=== PATIENT | female | born 1970 | race African-American/Black ===

== ENCOUNTER 2024-01-28 03:08 | Inpatient (IN) | payer OTHER ==
[~2024-01-28] VITALS: Ht 162.6 cm; Wt 53.5 kg
[~2024-01-28 03:08] MED LIST: DICY10CA37 PO
[2024-01-28 03:32] VITALS: BP 145/85; TEMP 98.6; O2SAT 99
[2024-01-28] MEDS ORDERED: ONDANSETRON HCL/PF 4 MG/2 ML VIAL IVP PRN (04:00)
[2024-01-28] MEDS ORDERED: Z GUARD REMEDY 4 OZ OINT TP PRN (04:00)
[2024-01-28] MEDS: IV NS 0.9% 1,000 ML IV PRN (06:32)
[2024-01-28 06:48] LABS: BASOPHILS % (AUTO) 0.5 % (0.0-2.0); EOSINOPHILS # (AUTO) 0.2 K/uL (0.0-0.7); EOSINOPHILS % (AUTO) 2.3 % (0.0-6.0); HEMATOCRIT 34 % (33-45); HEMOGLOBIN 11.3 g/dL (11.5-14.8); MEAN CORPUSCULAR HEMOGLOBIN 28 PG (26.0-33.0); MEAN CORPUSCULAR HGB CONC 33 g/dl (31.0-36.0); MEAN CORPUSCULAR VOLUME 86 fL (82-100); MONOCYTES # (AUTO) 0.6 K/uL (0.1-1.30); MONOCYTES % (AUTO) 6.6 % (2.0-12.0); NEUTROPHILS # (AUTO) 7.9 K/uL (1.8-8.9); NEUTROPHILS % (AUTO) 80.6 % (43.0-81.0); PLATELET COUNT (AUTO) 293 K/uL (150-450); RED BLOOD CELL COUNT(AUTO) 3.98 MIL/uL (4.0-5.2); RED CELL DISTRIBUTION WIDTH 15.2 % (11.5-15.0); WHITE BLOOD COUNT (AUTO) 9.9 K/uL (4.3-11.0)
[2024-01-28 06:53] LABS: INR 1.08 (0.91-1.10); PARTIAL THROMBOPLASTIN TIME 26.5 SEC (24.3-34.3); PROTHROMBIN TIME 11.4 SECS (9.2-11.1)
[2024-01-28 07:16] LABS: CALCIUM, SERUM 8.3 mg/dL (8.5-10.1); CREATININE 0.5 mg/dL (0.6-1.3); MAGNESIUM 1.4 mg/dL (1.8-2.4); PHOSPHORUS 3.8 mg/dL (2.5-4.9); POTASSIUM 2.8 mmol/L (3.5-5.1)
[2024-01-28 07:30] VITALS: BP 129/64; TEMP 98.4; O2SAT 100
[2024-01-28] MEDS: HYDROMORPHONE 1 MG/1 ML DISP.SYRIN IV PRN (07:48)
[2024-01-28] MEDS: PANTOPRAZOLE 40 MG VIAL IV SCH (08:10)
[2024-01-28] MEDS: Magnesium 1GM/D5W 100ML PREMIX 100 ML IV SCH (09:57)
[2024-01-28] MEDS: POTASSIUM CL. PREMIX PERIPHER. 50 ML IV SCH (09:58)
[2024-01-28] MEDS: THERAHONEY GEL 1.5 OZ TUBE TP SCH (10:14)
[2024-01-28 10:42] LABS: THYROID STIMULATING HORMONE 0.99 uIU/mL (0.358-3.74)
[2024-01-28] MEDS: BACITRACIN ZINC OINT PACKET 1 EA PACKET TP SCH (11:45)
[2024-01-28 16:00] VITALS: BP 151/86; TEMP 97.9; O2SAT 100
[2024-01-28] MEDS: ENOXAPARIN SODIUM 40 MG/0.4 ML DISP.SYRIN SQ SCH (16:48)
[2024-01-28] MEDS ORDERED: ASPI-1420 PO (17:44)
[2024-01-28] MEDS ORDERED: GABA300C PO (17:44)
[2024-01-28] MEDS ORDERED: LABE100T15 PO (17:44)
[2024-01-28] MEDS ORDERED: LEVE500T20 PO (17:44)
[2024-01-28] MEDS ORDERED: TRAM50TA2 PO (17:44)
[2024-01-28] MEDS ORDERED: LOPE-195 PO (17:44)
[2024-01-28] MEDS ORDERED: ATOR80TA PO (17:44)
[2024-01-28 20:04] VITALS: BP 127/67; TEMP 98.6; O2SAT 96
[2024-01-29 07:33] LABS: BASOPHILS # (AUTO) 0.1 K/uL (0.0-0.2); BASOPHILS % (AUTO) 0.5 % (0.0-2.0); EOSINOPHILS # (AUTO) 0.2 K/uL (0.0-0.7); EOSINOPHILS % (AUTO) 2.1 % (0.0-6.0); HEMATOCRIT 36 % (33-45); HEMOGLOBIN 11.3 g/dL (11.5-14.8); LYMPHOCYTES # (AUTO) 1.2 K/uL (0.8-4.8); LYMPHOCYTES % (AUTO) 10.5 % (20.0-44.0); MEAN CORPUSCULAR HEMOGLOBIN 28 PG (26.0-33.0); MEAN CORPUSCULAR HGB CONC 32 g/dl (31.0-36.0); MEAN CORPUSCULAR VOLUME 88 fL (82-100); MONOCYTES # (AUTO) 0.8 K/uL (0.1-1.30); MONOCYTES % (AUTO) 7.1 % (2.0-12.0); NEUTROPHILS # (AUTO) 9.3 K/uL (1.8-8.9); NEUTROPHILS % (AUTO) 79.8 % (43.0-81.0); PLATELET COUNT (AUTO) 292 K/uL (150-450); RED BLOOD CELL COUNT(AUTO) 4.03 MIL/uL (4.0-5.2); RED CELL DISTRIBUTION WIDTH 15.4 % (11.5-15.0); WHITE BLOOD COUNT (AUTO) 11.7 K/uL (4.3-11.0)
[2024-01-29 07:59] LABS: ALBUMIN 2.3 g/dL (3.4-5.0); BILIRUBIN,TOTAL 0.8 mg/dL (0.2-1.0); CALCIUM, SERUM 8.9 mg/dL (8.5-10.1); CREATININE 0.6 mg/dL (0.6-1.3); MAGNESIUM 1.7 mg/dL (1.8-2.4); PHOSPHORUS 3.6 mg/dL (2.5-4.9); POTASSIUM 3.6 mmol/L (3.5-5.1); TOTAL PROTEIN, SERUM 6.8 g/dL (6.4-8.2)
[2024-01-29 08:00] VITALS: BP 143/91; TEMP 98.1; O2SAT 100
[2024-01-29] MEDS: Magnesium 1GM/D5W 100ML PREMIX 100 ML IV SCH (08:35)
[2024-01-29 16:00] VITALS: BP 158/87; TEMP 98.6; O2SAT 97
[2024-01-29] MEDS: BACITRACIN ZINC OINT (15 GM) 15 GM TUBE TP SCH (16:15)
[2024-01-29 20:00] VITALS: BP 149/67; TEMP 98.4; O2SAT 100
[2024-01-29 21:00] VITALS: BP 132/70; TEMP 98; O2SAT 98
[2024-01-30 07:00] VITALS: BP 153/63; TEMP 98.6; O2SAT 98
[2024-01-30] MEDS ORDERED: TRANEXAMIC ACID 1,000 MG/10 ML VIAL ONE ×2 (09:32→11:36)
[2024-01-30] MEDS ORDERED: POLYMYXIN B SULFATE 500,000 UNITS ONE (09:32)
[2024-01-30] MEDS ORDERED: BUPIVACAINE 0.5 % PF 150 MG/30 ML VIAL ONE (09:32)
[2024-01-30] MEDS ORDERED: ANESTHESIA TRAY IN PYXIS 1 EA TRAY MC ONE (09:32)
[2024-01-30 09:49] LABS: ALBUMIN 2.1 g/dL (3.4-5.0); BILIRUBIN,TOTAL 0.7 mg/dL (0.2-1.0); CALCIUM, SERUM 8.6 mg/dL (8.5-10.1); CREATININE 0.4 mg/dL (0.6-1.3); MAGNESIUM 1.6 mg/dL (1.8-2.4); PHOSPHORUS 3.7 mg/dL (2.5-4.9); POTASSIUM 4.1 mmol/L (3.5-5.1); TOTAL PROTEIN, SERUM 6.5 g/dL (6.4-8.2)
[2024-01-30 09:50] LABS: PREGNANCY TEST URINE QUAL NEGATIVE (NEGATIVE)
[2024-01-30] MEDS ORDERED: FENTANYL PF 100MCG/2ML AMPUL ONE (10:11)
[2024-01-30] MEDS ORDERED: HYDROMORPHONE INJ 2 MG/ML DISP.SYRIN ONE (10:11)
[2024-01-30] MEDS ORDERED: MIDAZOLAM HCL 2 MG/2ML VIAL ONE (10:12)
[2024-01-30] MEDS ORDERED: LABETALOL HCL IV 100MG VIAL ONE (11:11)
[2024-01-30 16:00] VITALS: BP 145/78; TEMP 98.4; O2SAT 97
[2024-01-30] MEDS: CEFAZOLIN 2 GM in IV D5W 100 ML IV SCH (17:12)
[2024-01-30 20:00] VITALS: BP 146/95; TEMP 98.8; O2SAT 97
[2024-01-30 20:38] LABS: INR 1.19 (0.91-1.10); PARTIAL THROMBOPLASTIN TIME 23.1 SEC (24.3-34.3); PROTHROMBIN TIME 12.5 SECS (9.2-11.1)
[2024-01-30] MEDS: LEVETIRACETAM (250 MG) 250 MG TABLET PO SCH (21:44)
[2024-01-30] MEDS: ATORVASTATIN 40 MG TABLET PO SCH (21:44)
[2024-01-30 22:24] VITALS: BP 146/95; TEMP 98.8; O2SAT 97
[2024-01-31 08:00] VITALS: BP 165/79; TEMP 100.8; O2SAT 96
[2024-01-31] MEDS ORDERED: ACETAMINOPHEN ES 500 MG TABLET PO PRN (09:00)
[2024-01-31] MEDS: ASPIRIN EC 81 MG TABLET.DR PO SCH (09:25)
[2024-01-31] MEDS: LABETALOL HCL (100MG) 100 MG TABLET PO SCH (09:25)
[2024-01-31] MEDS: DICYCLOMINE HCL 10 MG CAPSULE PO SCH (09:25)
[2024-01-31] MEDS: GABAPENTIN 300 MG CAPSULE PO SCH (09:26)
[2024-01-31 13:28] LABS: ALBUMIN 1.7 g/dL (3.4-5.0); BILIRUBIN,TOTAL 0.5 mg/dL (0.2-1.0); CALCIUM, SERUM 7.7 mg/dL (8.5-10.1); CREATININE 0.5 mg/dL (0.6-1.3); PHOSPHORUS 2.7 mg/dL (2.5-4.9); TOTAL PROTEIN, SERUM 5.4 g/dL (6.4-8.2)
[2024-01-31 14:02] LABS: POTASSIUM 2.2 mmol/L (3.5-5.1)
[2024-01-31 14:03] LABS: MAGNESIUM 1.1 mg/dL (1.8-2.4)
[2024-01-31 14:56] LABS: BASOPHILS % (AUTO) 0.2 % (0.0-2.0); EOSINOPHILS % (AUTO) 0.1 % (0.0-6.0); HEMATOCRIT 28 % (33-45); HEMOGLOBIN 9.1 g/dL (11.5-14.8); LYMPHOCYTES # (AUTO) 0.7 K/uL (0.8-4.8); LYMPHOCYTES % (AUTO) 4.6 % (20.0-44.0); MEAN CORPUSCULAR HEMOGLOBIN 29 PG (26.0-33.0); MEAN CORPUSCULAR HGB CONC 33 g/dl (31.0-36.0); MEAN CORPUSCULAR VOLUME 87 fL (82-100); MONOCYTES # (AUTO) 1.4 K/uL (0.1-1.30); MONOCYTES % (AUTO) 9.1 % (2.0-12.0); NEUTROPHILS # (AUTO) 13.5 K/uL (1.8-8.9); PLATELET COUNT (AUTO) 224 K/uL (150-450); RED BLOOD CELL COUNT(AUTO) 3.19 MIL/uL (4.0-5.2); WHITE BLOOD COUNT (AUTO) 15.7 K/uL (4.3-11.0)
[2024-01-31] MEDS: Magnesium 1GM/D5W 100ML PREMIX 100 ML IV SCH (15:32)
[2024-01-31] MEDS: POTASSIUM CHLORIDE 20 MEQ TAB.PRT.SR PO ONE (15:33)
[2024-01-31] MEDS: POTASSIUM CL. PREMIX PERIPHER. 50 ML IV SCH (15:47)
[2024-01-31 16:00] VITALS: BP 121/72; TEMP 99.9; O2SAT 98
[2024-01-31] MEDS: ENOXAPARIN SODIUM 40 MG/0.4 ML DISP.SYRIN SQ SCH (16:41)
[2024-01-31 20:00] VITALS: BP 108/57; TEMP 98.6; O2SAT 98
[2024-02-01] LABS: APPEARANCE,URINE CLEAR (CLEAR); BILIRUBIN,URINE NEGATIVE (NEGATIVE); BLOOD, URINE 3+ Ery/uL (NEGATIVE); COLOR,URINE YELLOW (YELLOW); KETONES,URINE 2+ mg/dL (NEGATIVE); LEUKOCYTE ESTERASE ,URINE TRACE (NEGATIVE); NITRITE, URINE NEGATIVE (NEGATIVE); PROTEIN,URINE NEGATIVE (NEGATIVE); UGLUCOSE NEGATIVE (NEGATIVE); UROBILINOGEN,URINE 0.2 EU/dL (0.2)
[2024-02-01 00:12] LABS: ADD URINE CULTURE YES; BACTERIA,URINE Few /HPF (None Seen); SQUAMOUS EPITHELIAL CELL,UR Rare /HPF (None Seen)
[2024-02-01 07:01] LABS: BASOPHILS % (AUTO) 0.2 % (0.0-2.0); EOSINOPHILS # (AUTO) 0.1 K/uL (0.0-0.7); EOSINOPHILS % (AUTO) 0.5 % (0.0-6.0); HEMATOCRIT 24 % (33-45); LYMPHOCYTES # (AUTO) 0.8 K/uL (0.8-4.8); MEAN CORPUSCULAR HEMOGLOBIN 29 PG (26.0-33.0); MEAN CORPUSCULAR HGB CONC 33 g/dl (31.0-36.0); MEAN CORPUSCULAR VOLUME 86 fL (82-100); MONOCYTES # (AUTO) 1.2 K/uL (0.1-1.30); NEUTROPHILS # (AUTO) 10.8 K/uL (1.8-8.9); NEUTROPHILS % (AUTO) 84.3 % (43.0-81.0); PLATELET COUNT (AUTO) 191 K/uL (150-450); RED CELL DISTRIBUTION WIDTH 15.2 % (11.5-15.0); WHITE BLOOD COUNT (AUTO) 12.9 K/uL (4.3-11.0)
[2024-02-01 07:38] LABS: ALBUMIN 1.5 g/dL (3.4-5.0); BILIRUBIN,TOTAL 0.6 mg/dL (0.2-1.0); CALCIUM, SERUM 7.7 mg/dL (8.5-10.1); CREATININE 0.4 mg/dL (0.6-1.3); MAGNESIUM 1.6 mg/dL (1.8-2.4); PHOSPHORUS 3.5 mg/dL (2.5-4.9); TOTAL PROTEIN, SERUM 5.1 g/dL (6.4-8.2)
[2024-02-01 07:44] LABS: POTASSIUM 2.8 mmol/L (3.5-5.1)
[2024-02-01 08:00] VITALS: BP 145/56; TEMP 99.4; O2SAT 97
[2024-02-01] MEDS: PANTOPRAZOLE 40 MG TABLET.DR PO SCH (08:20)
[2024-02-01] MEDS: Magnesium 1GM/D5W 100ML PREMIX 100 ML IV SCH (10:06)
[2024-02-01] MEDS: POTASSIUM CHLORIDE 20 MEQ TAB.PRT.SR PO SCH (10:07)
[2024-02-01 16:00] VITALS: BP 127/60; TEMP 100.6; O2SAT 99
[2024-02-01 20:00] VITALS: BP 126/58; TEMP 97.8; O2SAT 98
[2024-02-02 07:14] LABS: BASOPHILS % (AUTO) 0.4 % (0.0-2.0); EOSINOPHILS # (AUTO) 0.1 K/uL (0.0-0.7); EOSINOPHILS % (AUTO) 1.2 % (0.0-6.0); HEMATOCRIT 21 % (33-45); HEMOGLOBIN 7.1 g/dL (11.5-14.8); LYMPHOCYTES # (AUTO) 0.6 K/uL (0.8-4.8); LYMPHOCYTES % (AUTO) 10.1 % (20.0-44.0); MEAN CORPUSCULAR HEMOGLOBIN 29 PG (26.0-33.0); MEAN CORPUSCULAR HGB CONC 33 g/dl (31.0-36.0); MEAN CORPUSCULAR VOLUME 86 fL (82-100); MONOCYTES # (AUTO) 0.9 K/uL (0.1-1.30); NEUTROPHILS # (AUTO) 4.6 K/uL (1.8-8.9); NEUTROPHILS % (AUTO) 74.3 % (43.0-81.0); PLATELET COUNT (AUTO) 169 K/uL (150-450); RED BLOOD CELL COUNT(AUTO) 2.49 MIL/uL (4.0-5.2); RED CELL DISTRIBUTION WIDTH 15.1 % (11.5-15.0); WHITE BLOOD COUNT (AUTO) 6.1 K/uL (4.3-11.0)
[2024-02-02 07:54] LABS: BILIRUBIN,TOTAL 0.5 mg/dL (0.2-1.0); CALCIUM, SERUM 7.3 mg/dL (8.5-10.1); CREATININE 0.4 mg/dL (0.6-1.3); MAGNESIUM 1.6 mg/dL (1.8-2.4); PHOSPHORUS 3.2 mg/dL (2.5-4.9); TOTAL PROTEIN, SERUM 4.7 g/dL (6.4-8.2)
[2024-02-02 07:56] LABS: ALBUMIN 1.3 g/dL (3.4-5.0); POTASSIUM 2.7 mmol/L (3.5-5.1)
[2024-02-02 08:00] VITALS: BP 129/57; TEMP 99.5; O2SAT 94
[2024-02-02] MEDS: ASPIRIN 81 MG TAB.CHEW PO SCH (08:32)
[2024-02-02] MEDS ORDERED: MAGNESIUM OXIDE 400 MG TABLET PO ONE (10:00)
[2024-02-02] MEDS: Magnesium 1GM/D5W 100ML PREMIX 100 ML IV SCH (10:14)
[2024-02-02] MEDS: POTASSIUM CHLORIDE 20 MEQ TAB.PRT.SR PO SCH (10:14)
[2024-02-02] MEDS: SOD FERRIC GLUC 125 MG in IV NS 0.9% 100 ML IV SCH (14:45)
[2024-02-02 16:00] VITALS: BP 136/62; TEMP 97.6; O2SAT 94
[2024-02-02 20:00] VITALS: BP 138/69; TEMP 99; O2SAT 98
[2024-02-03 07:09] LABS: BASOPHILS % (AUTO) 0.6 % (0.0-2.0); EOSINOPHILS # (AUTO) 0.1 K/uL (0.0-0.7); EOSINOPHILS % (AUTO) 1.2 % (0.0-6.0); HEMATOCRIT 24 % (33-45); HEMOGLOBIN 8.1 g/dL (11.5-14.8); LYMPHOCYTES # (AUTO) 0.9 K/uL (0.8-4.8); LYMPHOCYTES % (AUTO) 13.7 % (20.0-44.0); MEAN CORPUSCULAR HEMOGLOBIN 29 PG (26.0-33.0); MEAN CORPUSCULAR HGB CONC 33 g/dl (31.0-36.0); MEAN CORPUSCULAR VOLUME 87 fL (82-100); MONOCYTES # (AUTO) 0.7 K/uL (0.1-1.30); MONOCYTES % (AUTO) 10.2 % (2.0-12.0); NEUTROPHILS # (AUTO) 4.9 K/uL (1.8-8.9); NEUTROPHILS % (AUTO) 74.3 % (43.0-81.0); PLATELET COUNT (AUTO) 235 K/uL (150-450); RED BLOOD CELL COUNT(AUTO) 2.79 MIL/uL (4.0-5.2); RED CELL DISTRIBUTION WIDTH 15.1 % (11.5-15.0); WHITE BLOOD COUNT (AUTO) 6.5 K/uL (4.3-11.0)
[2024-02-03 07:29] LABS: CALCIUM, SERUM 8.5 mg/dL (8.5-10.1); CREATININE 0.4 mg/dL (0.6-1.3); POTASSIUM 3.9 mmol/L (3.5-5.1)
[2024-02-03 08:00] VITALS: BP 147/69; TEMP 99.3; O2SAT 97
[2024-02-03] MEDS ORDERED: TRAM50TA2 PO (09:53)
[2024-02-03] MEDS ORDERED: BACITRACIN TP (09:53)
[2024-02-03] MEDS ORDERED: COLL30OI TP (09:53)
[2024-02-03] MEDS ORDERED: ACET-73 PO (09:53)
[2024-02-03] MEDS ORDERED: APIX2.5T PO (09:53)
[2024-02-03] MEDS ORDERED: ASPI-1169 PO (09:53)
[2024-02-03] MEDS ORDERED: METH5TAB70 PO (09:53)
[2024-02-03 13:09] VITALS: BP 133/64
[2024-02-03] MEDS: ENSURE ENLIVE 237 ML LIQUID (VANILLA) PO SCH (13:14)
[2024-02-04] MEDS ORDERED: METHIMAZOLE (5MG) 5 MG TABLET PO SCH (09:00)
== END 2024-02-03 14:20 | disposition home health service (06) | DRG 323 ==
LOC: MED 03:08
PROVIDERS: ATTEND Nurse Practitioner Acute Care
PROC: 0SRR0J9 Replacement of Right Hip Joint, Femoral Surface with Synthetic Substitute, Cemented, Open Approach (ICD-10-PCS; principal; 2024-01-30)
PROC: 0JBG0ZZ Excision of Right Lower Arm Subcutaneous Tissue and Fascia, Open Approach (ICD-10-PCS; 2024-02-01)
PROC: 0JBG0ZZ Excision of Right Lower Arm Subcutaneous Tissue and Fascia, Open Approach (ICD-10-PCS; 2024-02-03)
DX: S72.011A Unspecified intracapsular fracture of right femur, initial encounter for closed fracture (principal); E43 Unspecified severe protein-calorie malnutrition; L89.013 Pressure ulcer of right elbow, stage 3; D50.9 Iron deficiency anemia, unspecified; E83.42 Hypomagnesemia; G40.909 Epilepsy, unspecified, not intractable, without status epilepticus; I10 Essential (primary) hypertension; E87.6 Hypokalemia; K50.90 Crohn's disease, unspecified, without complications; Z68.20 Body mass index [BMI] 20.0-20.9, adult; I69.351 Hemiplegia and hemiparesis following cerebral infarction affecting right dominant side; E88.09 Other disorders of plasma-protein metabolism, not elsewhere classified; Z88.6 Allergy status to analgesic agent; S31.819A Unspecified open wound of right buttock, initial encounter; X58.XXXA Exposure to other specified factors, initial encounter; Y92.9 Unspecified place or not applicable; Z88.5 Allergy status to narcotic agent; Z88.8 Allergy status to other drugs, medicaments and biological substances; Z91.81 History of falling
CPT/HCPCS: 36415; 71045-TC; 73502; 73700-TC; 76536-TC; 80048-TC; 80053-TC; 80061-TC; 81001; 82728-TC; 83540-TC; 83735-TC; 84100-TC; 84439-TC; 84443-TC; 84703-TC; 85025-TC; 85610-TC; 85730-TC; 86850-TC; 87081-TC; 87086-TC; 92526; 93307-TC; 97110-TC; 97112-TC; 97530-TC; A4217; A4223; A6209; C1713; C1776; G0378; J0690; J1170; J1650; J2250; J2405; J2470; J2704; J2765; J2916; J3010; J3475; J3480; J3490; J7030; J7050; J7060